=== PATIENT | female | born 1975 | race Caucasian/White ===

== ENCOUNTER 2022-02-11 05:27 | Emergency (ER) | payer MEDICAID, SELFPAY ==
[2022-02-11 05:32] VITALS: PULSE 76; RESP 18; TEMP 36.4; O2SAT 95
--- NOTE | 2022-02-11 06:08 | ED.GENADUL_ITS ---
Discharge Plan Disposition Patient Disposition: HOME Condition: Stable Discharge Details Clinical Impression: Facial cellulitis, Dental infection Primary Care Provider: Timothy Mcneil ED Provider: Yonathan Mancera Home Meds and New Rx's Prescriptions: New levofloxacin 750 mg tablet 750 mg PO DAILY 7 Days Qty: 7 0RF metronidazole 500 mg tablet 500 mg PO TID 7 Days Qty: 21 0RF No Action amoxicillin 875 mg Tablet 875 mg PO BID Discharge Instructions Instructions: Dental Abscess (ED), Cellulitis (ED) Additional Instructions: Please medications as prescribed. Please return to the emergency department you develop any worsening pain swelling trouble breathing trouble speaking fevers chills sweats or other abnormal symptoms. Please follow-up with your dentist as scheduled. Medical Decision Making 46-year-old female presents with over 1 week of right facial swelling and dental pain, fractured carious right lower molar, was placed on Augmentin and completed 10-day course without improvement, was seen at outside facility and prescribed amoxicillin which she has not started to take as she realized this is a less potent form of the medicine she had just completed, presents with worsening pain and swelling to the right mandibular region noted this morning, afebrile nontoxic tolerating secretions normal voice midline uvula, does have mandibular induration, a fractured carious right lower molar, area of fluctuance and induration to right buccal mucosa, no sublingual or submental induration. Concern for facial cellulitis versus dental abscess at this time no evidence of Alessia's angina or Lemierre's. Anesthetized buccal mucosa and oral mucosa with bupivacaine spray, injected 1% lidocaine without epi into periapical space and buccal mucosa, was able to express a small amount of purulent material for buccal mucosa. Will extend antibiotic coverage with levofloxacin and metronidazole. Given nontoxic patient without signs of deep space infection or systemic infection will be discharged home to follow-up with dental services. Given strict return precautions for worsening symptoms or nonhealing infection. HPI General Date/Time Provider Initiated Documentation: 02/11/22 05:30 . HPI Narrative: 46-year-old female presents with over 1 week of right dental discomfort, noticed some swelling to her lower jaw, was placed on Augmentin at outside facility completed 10-day course of Augmentin without complete resolution, was then prescribed amoxicillin p.o. however woke up this morning with more swelling to her right jaw and discomfort denies fevers chills nausea or vomiting denies other systemic signs of illness. Has an appointment to see a dentist on the of this month Related Data Home Medications Medication Instructions Recorded Confirmed amoxicillin 875 mg tablet 875 mg PO BID 02/11/22 02/11/22 levofloxacin 750 mg tablet 750 mg PO DAILY 7 days #7 tabs 02/11/22 metronidazole 500 mg tablet 500 mg PO TID 7 days #21 tabs 02/11/22 Previous Rx's Medication Instructions Recorded levofloxacin 750 mg tablet 750 mg PO DAILY 7 days #7 tabs 02/11/22 metronidazole 500 mg tablet 500 mg PO TID 7 days #21 tabs 02/11/22 Allergies Allergy/AdvReac Type Severity Reaction Status Date / Time egg Allergy Unverified 02/11/22 05:40 General Stated Complaint: DentalOral ELEAZAR: 4 Review of Systems Narrative: Review of Systems Constitutional: negative Eyes: negative ENT: Dental pain, facial swelling Cardiovascular: negative Respiratory: negative Gastrointestinal: negative : negative Musculoskeletal: negative Skin: negative Neurologic: negative Psych: negative PFSH All Active Problems (Updated 02/11/22 @ 06:38 by Yonathan Mancera MD) Facial cellulitis (Acute) Dental infection (Acute) Social History Smoking/Tobacco Use Status: Current every day Tobacco Type: cigarettes Smoking risk assessment performed?: Yes Drug use: Never Substance use type: does not use Do you feel safe at home: Yes Exam Narrative Exam Narrative: Physical Examination General: alert, awake, cooperative, resting comfortably, no acute distress HEENT: Swelling to right mandibular region, fractured carious right lower molar, area of induration and possible fluctuance right buccal mucosa, no sublingual or induration, no submental induration; normal voice midline uvula tolerating secretions normocephalic, atraumatic; PERRL, EOM intact, conjunctiva normal; no nasal discharge; moist mucous membranes Neck: supple, trachea midline; full ROM Chest: normal to inspection Respiratory: normal respiratory effort, speaking in full sentences, clear to auscultation, no wheezing, rales or rhonchi Cardiac: regular rate, regular rhythm, S1S2 intact, no murmurs rubs or gallops GI: abdomen soft, non-tender, non-distended; no palpable mass or hepatosplenomegaly Skin: no lesions, rashes or trauma appreciated Neuro: AAOx3, normal speech, moving all extremities Psych: Appropriate mood and affect Course Vital Signs Vital signs: Vital Signs Temperature 36.4 C L 02/11/22 05:32 Pulse 76 02/11/22 05:32 Respiratory Rate 18 02/11/22 05:32 Pulse Oximetry 95 02/11/22 05:32 Temperature 36.4 C L 02/11/22 05:32 Temperature Source Skin 02/11/22 05:32 Pulse 76 02/11/22 05:32 Respiratory Rate 18 02/11/22 05:32 Respiratory Effort 02/11/22 05:37 Blood Pressure Position Sitting 02/11/22 05:32 Pulse Oximetry 95 02/11/22 05:32 Oxygen Delivery Method Room Air 02/11/22 05:32 Oxygen Flow Rate 0 02/11/22 05:32 Pain Level 7 02/11/22 05:37 Comment 02/11/22 05:32 PAWSS Have you Been Recently Intoxicated or Drunk Within the Last 30 days?: Yes Have you Ever Experienced Previous Episodes of Alcohol Withdrawal?: No Have you ever Experienced Withdrawal Seizures?: No Have you ever Experienced Delirium Tremens(DT)s?: No Have you ever undergone Alcohol Rehabilitation Treatment (i.e, inpt ot outpatient treatment programs)?: No Have you ever Experienced Blackouts?: No Have you ever Combined Alcohol with other Downers within the last 90 days?: No Have you ever Combined Alcohol with any other Substance of Abuse during the last 90 days?: No Positive Blood Alcohol level on Presentation? [PCS.BAL]: No Evidence of Increased Autonomic Activity (i.e. HR>120, tremor, sweating, agitation, nausea)?: No Result: 1
[2022-02-11] MEDS: Ketorolac 15 MG/ML VIAL IM (06:17)
[2022-02-11] MEDS: metroNIDAZOLE 500 MG TAB PO (06:17)
[2022-02-11] MEDS: levoFLOXacin 500 MG, levoFLOXacin 250 MG 750 MG PO (06:17)
== END 2022-02-11 06:49 | disposition home or self-care (01) ==
PROVIDERS: Emergency Provider Emergency Medicine; PCP Nurse Practitioner Family
DX: L03.211 Cellulitis of face (principal); F17.210 Nicotine dependence, cigarettes, uncomplicated; K04.7 Periapical abscess without sinus; K03.81 Cracked tooth
CPT/HCPCS: 96372; 99284; J1885